=== PATIENT | female | born 1970 | race Caucasian/White ===

== ENCOUNTER 2019-12-20 12:02 | Inpatient (IN) | payer OTHER ==
[2019-12-20] MEDS ORDERED: PNEUMOC 13-VAL CONJ-DIP CRM/PF 0.5 ML DISP.SYRIN IM ONE (12:16)
[2019-12-20] MEDS ORDERED: MAGNESIUM CITRATE 300 ML BOTTLE PO PRN (12:43)
[2019-12-20] MEDS ORDERED: ACETAMINOPHEN 325 MG TABLET (FP) PO PRN (12:43)
[2019-12-20] MEDS ORDERED: MAGNESIUM HYDROX 2400MG/30ML ORAL SUSPENSION 30 ML CUP PO PRN (12:43)
[2019-12-20] MEDS ORDERED: P-EPHED 60MG/TRIPROLIDI 2.5MG TABLET PO PRN (12:43)
[2019-12-20] MEDS ORDERED: LOPERAMIDE HCL 2 MG CAPSULE PO PRN (12:43)
[2019-12-20] MEDS ORDERED: guaiFENesin 200 MG/10 ML 10 ML UNIT-DOSE CUPS PO PRN (12:43)
[2019-12-20] MEDS ORDERED: MAG HYDROX/AL HYDROX/SIMETH 30 ML UNIT-DOSE CUP PO PRN (12:43)
[2019-12-20] MEDS: MELATONIN 5 MG TABLETS PO SCH (21:04)
[2019-12-20] MEDS: THIAMINE HCL 100 MG TABLET (FP) PO SCH (21:04)
[2019-12-20] MEDS ORDERED: levETIRAcetam 500 MG TABLET (FP) PO SCH (22:00)
[2019-12-21] MEDS: NICOTINE 14 MG/24 HOURS TOPICAL PATCH TD SCH (10:02)
[2019-12-21] MEDS: PRENATAL VITAMINS W/ FOLIC ACID TABLET (FP) PO SCH (10:02)
[2019-12-21] MEDS ORDERED: PNEUMOCOCCAL 23 VACCINE 0.5 ML VIAL IM ONE (12:00)
[2019-12-21] MEDS ORDERED: FLU VACCINE (FLULAVAL) PF 60 MCG/0.5 ML SYRINGE 2020-2021 IM ONE (12:00)
[2019-12-21 20:56] LABS: PH,URINE 7.5 (5.0-8.0); URINE APPEARANCE CLEAR; URINE BILIRUBIN NEGATIVE (NEGATIVE); URINE COLOR YELLOW; URINE GLUCOSE (UA) NEGATIVE (NEGATIVE); URINE KETONE NEGATIVE (NEGATIVE); URINE LEUK ESTERASE NEGATIVE (NEGATIVE); URINE NITRITE NEGATIVE (NEGATIVE); URINE PROTEIN NEGATIVE (NEGATIVE); URINE UROBILINOGEN 0.2 mg/dL (0.2-1.0)
[2019-12-21] MEDS: THIAMINE HCL 100 MG TABLET (FP) PO SCH (21:15)
[2019-12-21] MEDS: MELATONIN 5 MG TABLETS PO SCH (21:15)
[2019-12-22] MEDS: PRENATAL VITAMINS W/ FOLIC ACID TABLET (FP) PO SCH (09:52)
[2019-12-22] MEDS: NICOTINE 14 MG/24 HOURS TOPICAL PATCH TD SCH (09:52)
[2019-12-22] MEDS: MELATONIN 5 MG TABLETS PO SCH (21:14)
[2019-12-22] MEDS: THIAMINE HCL 100 MG TABLET (FP) PO SCH (21:14)
[2019-12-23] MEDS: PRENATAL VITAMINS W/ FOLIC ACID TABLET (FP) PO SCH (09:52)
[2019-12-23] MEDS: NICOTINE 14 MG/24 HOURS TOPICAL PATCH TD SCH (09:52)
[2019-12-23] MEDS ORDERED: PT OWN MED DRAWER 7, Y5N ONE (19:14)
[2019-12-23] MEDS: MELATONIN 5 MG TABLETS PO SCH (21:43)
[2019-12-23] MEDS: NICOTINE POLACRILEX 2 MG GUM BUC PRN (21:44)
[2019-12-23] MEDS: THIAMINE HCL 100 MG TABLET (FP) PO SCH (21:44)
[2019-12-24] MEDS: PRENATAL VITAMINS W/ FOLIC ACID TABLET (FP) PO SCH (10:20)
[2019-12-24] MEDS: NICOTINE 14 MG/24 HOURS TOPICAL PATCH TD SCH (10:20)
[2019-12-24] MEDS ORDERED: MASKS NR ONE (16:35)
[2019-12-24] MEDS ORDERED: PT OWN MED DRAWER 7, Y5N ONE (20:49)
[2019-12-24] MEDS: THIAMINE HCL 100 MG TABLET (FP) PO SCH (21:04)
[2019-12-24] MEDS: MELATONIN 5 MG TABLETS PO SCH (21:04)
[2019-12-25] MEDS: PRENATAL VITAMINS W/ FOLIC ACID TABLET (FP) PO SCH (09:51)
[2019-12-25] MEDS: NICOTINE 14 MG/24 HOURS TOPICAL PATCH TD SCH (09:52)
[2019-12-25] MEDS: MELATONIN 5 MG TABLETS PO SCH (21:29)
[2019-12-25] MEDS: THIAMINE HCL 100 MG TABLET (FP) PO SCH (21:29)
[2019-12-26] MEDS: NICOTINE 14 MG/24 HOURS TOPICAL PATCH TD SCH (10:09)
[2019-12-26] MEDS: PRENATAL VITAMINS W/ FOLIC ACID TABLET (FP) PO SCH (10:23)
[2019-12-26] MEDS ORDERED: MASKS NR ONE (12:15)
[2019-12-26] MEDS: MELATONIN 5 MG TABLETS PO SCH (21:25)
[2019-12-26] MEDS: THIAMINE HCL 100 MG TABLET (FP) PO SCH (21:25)
[2019-12-27] MEDS: PRENATAL VITAMINS W/ FOLIC ACID TABLET (FP) PO SCH (09:17)
[2019-12-27] MEDS: NICOTINE 14 MG/24 HOURS TOPICAL PATCH TD SCH (09:18)
[2019-12-27] MEDS ORDERED: COLLOIDAL OATMEAL 1 BAR EACH TP PRN (14:00)
[2019-12-27] MEDS ORDERED: PT OWN MED DRAWER 7, Y5N ONE (14:49)
[2019-12-27] MEDS: THIAMINE HCL 100 MG TABLET (FP) PO SCH (21:08)
[2019-12-27] MEDS: MELATONIN 5 MG TABLETS PO SCH (21:09)
[2019-12-28] MEDS: PRENATAL VITAMINS W/ FOLIC ACID TABLET (FP) PO SCH (09:42)
[2019-12-28] MEDS: NICOTINE 14 MG/24 HOURS TOPICAL PATCH TD SCH (09:43)
[2019-12-28] MEDS: THIAMINE HCL 100 MG TABLET (FP) PO SCH (21:18)
[2019-12-28] MEDS: MELATONIN 5 MG TABLETS PO SCH (21:18)
[2019-12-29] MEDS ORDERED: PT OWN MED DRAWER 7, Y5N ONE (08:21)
[2019-12-29] MEDS: NICOTINE 14 MG/24 HOURS TOPICAL PATCH TD SCH (09:38)
[2019-12-29] MEDS: PRENATAL VITAMINS W/ FOLIC ACID TABLET (FP) PO SCH (09:39)
[2019-12-29] MEDS: MELATONIN 5 MG TABLETS PO SCH (21:40)
[2019-12-29] MEDS: THIAMINE HCL 100 MG TABLET (FP) PO SCH (21:41)
[2019-12-30] MEDS: PRENATAL VITAMINS W/ FOLIC ACID TABLET (FP) PO SCH (10:16)
[2019-12-30] MEDS: NICOTINE 14 MG/24 HOURS TOPICAL PATCH TD SCH (10:17)
[2019-12-30] MEDS: THIAMINE HCL 100 MG TABLET (FP) PO SCH (21:36)
[2019-12-30] MEDS: MELATONIN 5 MG TABLETS PO SCH (21:36)
[2019-12-31] MEDS: NICOTINE 14 MG/24 HOURS TOPICAL PATCH TD SCH (10:00)
[2019-12-31] MEDS: PRENATAL VITAMINS W/ FOLIC ACID TABLET (FP) PO SCH (10:00)
[2019-12-31] MEDS: MELATONIN 5 MG TABLETS PO SCH (21:37)
[2019-12-31] MEDS: THIAMINE HCL 100 MG TABLET (FP) PO SCH (21:37)
[2020-01-01] MEDS: PRENATAL VITAMINS W/ FOLIC ACID TABLET (FP) PO SCH (10:14)
[2020-01-01] MEDS: NICOTINE 14 MG/24 HOURS TOPICAL PATCH TD SCH (10:15)
[2020-01-01] MEDS: MELATONIN 5 MG TABLETS PO SCH (21:34)
[2020-01-01] MEDS: THIAMINE HCL 100 MG TABLET (FP) PO SCH (21:34)
[2020-01-02] MEDS ORDERED: PT OWN MED DRAWER 7, Y5N ONE (08:58)
[2020-01-02] MEDS: PRENATAL VITAMINS W/ FOLIC ACID TABLET (FP) PO SCH (10:37)
[2020-01-02] MEDS: NICOTINE 14 MG/24 HOURS TOPICAL PATCH TD SCH (10:37)
[2020-01-02] MEDS: IBUPROFEN 400 MG TABLET (FP) PO PRN ×2 (10:38→21:28)
[2020-01-02] MEDS: THIAMINE HCL 100 MG TABLET (FP) PO SCH (21:27)
[2020-01-02] MEDS: MELATONIN 5 MG TABLETS PO SCH (21:27)
[2020-01-03] MEDS ORDERED: PT OWN MED DRAWER 7, Y5N ONE ×2 (08:48→19:08)
[2020-01-03] MEDS: PRENATAL VITAMINS W/ FOLIC ACID TABLET (FP) PO SCH (10:20)
[2020-01-03] MEDS: NICOTINE 14 MG/24 HOURS TOPICAL PATCH TD SCH (10:20)
[2020-01-03] MEDS: IBUPROFEN 400 MG TABLET (FP) PO PRN ×2 (10:21→17:54)
[2020-01-03] MEDS: NICOTINE POLACRILEX 2 MG GUM BUC PRN (10:23)
[2020-01-03] MEDS ORDERED: BENZOCAINE 20 % GEL TUBE MM PRN (10:56)
[2020-01-03] MEDS: CHLORHEXIDINE GLUCONATE 0.12% 15ML CUP MM SCH ×2 (13:20→21:23)
[2020-01-03] MEDS: AMOXICILLIN 500 MG CAPSULE (FP) PO SCH ×2 (13:22→21:22)
[2020-01-03] MEDS: THIAMINE HCL 100 MG TABLET (FP) PO SCH (21:23)
[2020-01-03] MEDS: MELATONIN 5 MG TABLETS PO SCH (21:23)
[2020-01-04] MEDS: IBUPROFEN 400 MG TABLET (FP) PO PRN (06:33)
[2020-01-04] MEDS: AMOXICILLIN 500 MG CAPSULE (FP) PO SCH ×3 (06:33→21:30)
[2020-01-04] MEDS ORDERED: PT OWN MED DRAWER 7, Y5N ONE ×2 (08:56→18:20)
[2020-01-04] MEDS: PRENATAL VITAMINS W/ FOLIC ACID TABLET (FP) PO SCH (10:08)
[2020-01-04] MEDS: NICOTINE 14 MG/24 HOURS TOPICAL PATCH TD SCH (10:09)
[2020-01-04] MEDS: CHLORHEXIDINE GLUCONATE 0.12% 15ML CUP MM SCH ×2 (10:09→21:30)
[2020-01-04] MEDS: THIAMINE HCL 100 MG TABLET (FP) PO SCH (21:30)
[2020-01-04] MEDS: MELATONIN 5 MG TABLETS PO SCH (21:30)
[2020-01-05] MEDS: AMOXICILLIN 500 MG CAPSULE (FP) PO SCH ×3 (06:19→21:29)
[2020-01-05] MEDS: IBUPROFEN 400 MG TABLET (FP) PO PRN (06:19)
[2020-01-05] MEDS ORDERED: PT OWN MED DRAWER 7, Y5N ONE ×3 (08:49→19:25)
[2020-01-05] MEDS: NICOTINE 14 MG/24 HOURS TOPICAL PATCH TD SCH (10:41)
[2020-01-05] MEDS: PRENATAL VITAMINS W/ FOLIC ACID TABLET (FP) PO SCH (10:41)
[2020-01-05] MEDS: CHLORHEXIDINE GLUCONATE 0.12% 15ML CUP MM SCH ×2 (10:43→21:29)
[2020-01-05] MEDS: THIAMINE HCL 100 MG TABLET (FP) PO SCH (21:29)
[2020-01-05] MEDS: MELATONIN 5 MG TABLETS PO SCH (21:29)
[2020-01-06] MEDS: AMOXICILLIN 500 MG CAPSULE (FP) PO SCH ×3 (06:19→21:27)
[2020-01-06] MEDS: IBUPROFEN 400 MG TABLET (FP) PO PRN (06:20)
[2020-01-06] MEDS ORDERED: PT OWN MED DRAWER 7, Y5N ONE ×2 (08:40→19:11)
[2020-01-06] MEDS: NICOTINE 14 MG/24 HOURS TOPICAL PATCH TD SCH (09:59)
[2020-01-06] MEDS: PRENATAL VITAMINS W/ FOLIC ACID TABLET (FP) PO SCH (09:59)
[2020-01-06] MEDS: CHLORHEXIDINE GLUCONATE 0.12% 15ML CUP MM SCH ×2 (09:59→21:26)
[2020-01-06] MEDS: MELATONIN 5 MG TABLETS PO SCH (21:26)
[2020-01-06] MEDS: THIAMINE HCL 100 MG TABLET (FP) PO SCH (21:26)
[2020-01-07] MEDS: AMOXICILLIN 500 MG CAPSULE (FP) PO SCH ×3 (06:13→21:16)
[2020-01-07] MEDS: IBUPROFEN 400 MG TABLET (FP) PO PRN (06:13)
[2020-01-07] MEDS ORDERED: PT OWN MED DRAWER 7, Y5N ONE ×4 (08:39→19:57)
[2020-01-07] MEDS: PRENATAL VITAMINS W/ FOLIC ACID TABLET (FP) PO SCH (09:21)
[2020-01-07] MEDS: NICOTINE 14 MG/24 HOURS TOPICAL PATCH TD SCH (09:21)
[2020-01-07] MEDS: CHLORHEXIDINE GLUCONATE 0.12% 15ML CUP MM SCH ×2 (09:23→21:17)
[2020-01-07] MEDS: MELATONIN 5 MG TABLETS PO SCH (21:16)
[2020-01-07] MEDS: THIAMINE HCL 100 MG TABLET (FP) PO SCH (21:16)
[2020-01-08] MEDS: AMOXICILLIN 500 MG CAPSULE (FP) PO SCH ×3 (05:59→21:37)
[2020-01-08] MEDS ORDERED: PT OWN MED DRAWER 7, Y5N ONE ×2 (09:06→20:26)
[2020-01-08] MEDS: PRENATAL VITAMINS W/ FOLIC ACID TABLET (FP) PO SCH (11:34)
[2020-01-08] MEDS: NICOTINE 14 MG/24 HOURS TOPICAL PATCH TD SCH (11:34)
[2020-01-08] MEDS: CHLORHEXIDINE GLUCONATE 0.12% 15ML CUP MM SCH ×2 (11:35→21:38)
[2020-01-08] MEDS: THIAMINE HCL 100 MG TABLET (FP) PO SCH (21:38)
[2020-01-08] MEDS: MELATONIN 5 MG TABLETS PO SCH (21:38)
[2020-01-09] MEDS: AMOXICILLIN 500 MG CAPSULE (FP) PO SCH ×3 (06:23→21:16)
[2020-01-09] MEDS ORDERED: PT OWN MED DRAWER 7, Y5N ONE ×2 (08:56→18:35)
[2020-01-09] MEDS: PRENATAL VITAMINS W/ FOLIC ACID TABLET (FP) PO SCH (09:44)
[2020-01-09] MEDS: CHLORHEXIDINE GLUCONATE 0.12% 15ML CUP MM SCH ×2 (09:45→21:16)
[2020-01-09] MEDS: NICOTINE 14 MG/24 HOURS TOPICAL PATCH TD SCH (09:45)
[2020-01-09] MEDS: MELATONIN 5 MG TABLETS PO SCH (21:16)
[2020-01-09] MEDS: THIAMINE HCL 100 MG TABLET (FP) PO SCH (21:16)
[2020-01-10] MEDS: PRENATAL VITAMINS W/ FOLIC ACID TABLET (FP) PO SCH (09:59)
[2020-01-10] MEDS: CHLORHEXIDINE GLUCONATE 0.12% 15ML CUP MM SCH ×2 (10:00→21:20)
[2020-01-10] MEDS: NICOTINE 14 MG/24 HOURS TOPICAL PATCH TD SCH (10:00)
[2020-01-10] MEDS: THIAMINE HCL 100 MG TABLET (FP) PO SCH (21:19)
[2020-01-10] MEDS: MELATONIN 5 MG TABLETS PO SCH (21:19)
[2020-01-11] MEDS: PRENATAL VITAMINS W/ FOLIC ACID TABLET (FP) PO SCH (09:44)
[2020-01-11] MEDS: CHLORHEXIDINE GLUCONATE 0.12% 15ML CUP MM SCH ×2 (09:45→21:20)
[2020-01-11] MEDS: NICOTINE 14 MG/24 HOURS TOPICAL PATCH TD SCH (09:45)
[2020-01-11] MEDS ORDERED: PT OWN MED DRAWER 7, Y5N ONE (18:53)
[2020-01-11] MEDS: MELATONIN 5 MG TABLETS PO SCH (21:20)
[2020-01-11] MEDS: THIAMINE HCL 100 MG TABLET (FP) PO SCH (21:20)
[2020-01-12] MEDS ORDERED: PT OWN MED DRAWER 7, Y5N ONE (08:47)
[2020-01-12] MEDS: NICOTINE 14 MG/24 HOURS TOPICAL PATCH TD SCH (10:04)
[2020-01-12] MEDS: CHLORHEXIDINE GLUCONATE 0.12% 15ML CUP MM SCH ×2 (10:04→21:19)
[2020-01-12] MEDS: PRENATAL VITAMINS W/ FOLIC ACID TABLET (FP) PO SCH (10:04)
[2020-01-12] MEDS: MELATONIN 5 MG TABLETS PO SCH (21:19)
[2020-01-12] MEDS: THIAMINE HCL 100 MG TABLET (FP) PO SCH (21:19)
[2020-01-13] MEDS ORDERED: PT OWN MED DRAWER 7, Y5N ONE ×2 (08:56→20:54)
[2020-01-13] MEDS: PRENATAL VITAMINS W/ FOLIC ACID TABLET (FP) PO SCH (10:31)
[2020-01-13] MEDS: CHLORHEXIDINE GLUCONATE 0.12% 15ML CUP MM SCH ×2 (10:31→22:07)
[2020-01-13] MEDS: NICOTINE 14 MG/24 HOURS TOPICAL PATCH TD SCH (10:31)
[2020-01-13] MEDS: NICOTINE POLACRILEX 2 MG GUM BUC PRN (10:33)
[2020-01-13] MEDS: MELATONIN 5 MG TABLETS PO SCH (22:06)
[2020-01-13] MEDS: THIAMINE HCL 100 MG TABLET (FP) PO SCH (22:07)
[2020-01-14] MEDS: NICOTINE 14 MG/24 HOURS TOPICAL PATCH TD SCH (09:59)
[2020-01-14] MEDS: CHLORHEXIDINE GLUCONATE 0.12% 15ML CUP MM SCH ×2 (09:59→21:47)
[2020-01-14] MEDS: PRENATAL VITAMINS W/ FOLIC ACID TABLET (FP) PO SCH (09:59)
[2020-01-14] MEDS ORDERED: PT OWN MED DRAWER 7, Y5N ONE (20:39)
[2020-01-14] MEDS: MELATONIN 5 MG TABLETS PO SCH (21:47)
[2020-01-14] MEDS: THIAMINE HCL 100 MG TABLET (FP) PO SCH (21:47)
[2020-01-15] MEDS ORDERED: PT OWN MED DRAWER 7, Y5N ONE (08:49)
[2020-01-15] MEDS: NICOTINE 14 MG/24 HOURS TOPICAL PATCH TD SCH (10:18)
[2020-01-15] MEDS: PRENATAL VITAMINS W/ FOLIC ACID TABLET (FP) PO SCH (10:18)
[2020-01-15] MEDS: CHLORHEXIDINE GLUCONATE 0.12% 15ML CUP MM SCH ×2 (10:18→21:25)
[2020-01-15] MEDS: MELATONIN 5 MG TABLETS PO SCH (21:25)
[2020-01-15] MEDS: THIAMINE HCL 100 MG TABLET (FP) PO SCH (21:25)
[2020-01-16] MEDS: NICOTINE 14 MG/24 HOURS TOPICAL PATCH TD SCH (10:07)
[2020-01-16] MEDS: CHLORHEXIDINE GLUCONATE 0.12% 15ML CUP MM SCH ×2 (10:07→21:13)
[2020-01-16] MEDS: PRENATAL VITAMINS W/ FOLIC ACID TABLET (FP) PO SCH (10:07)
[2020-01-16] MEDS: MELATONIN 5 MG TABLETS PO SCH (21:13)
[2020-01-16] MEDS: THIAMINE HCL 100 MG TABLET (FP) PO SCH (21:13)
[2020-01-17 06:46] VITALS: BP 134/74; PULSE 72; TEMP 97.5
[2020-01-17] MEDS: NICOTINE 14 MG/24 HOURS TOPICAL PATCH TD SCH (09:41)
[2020-01-17] MEDS: PRENATAL VITAMINS W/ FOLIC ACID TABLET (FP) PO SCH (09:41)
[2020-01-17] MEDS: CHLORHEXIDINE GLUCONATE 0.12% 15ML CUP MM SCH (09:44)
== END 2020-01-17 11:04 | disposition home or self-care (01) | DRG 772 ==
LOC: YASAS 12:02 → Y3E 12:03 → Y3W 12-29 15:07
PROVIDERS: ADMIT Allergy & Immunology; ATTEND Allergy & Immunology
PROC: HZ42ZZZ Group Counseling for Substance Abuse Treatment, Cognitive-Behavioral (ICD-10-PCS; principal; 2019-12-20)
DX: F10.20 Alcohol dependence, uncomplicated (principal); F13.20 Sedative, hypnotic or anxiolytic dependence, uncomplicated; F11.20 Opioid dependence, uncomplicated; F14.20 Cocaine dependence, uncomplicated; F12.20 Cannabis dependence, uncomplicated; F17.210 Nicotine dependence, cigarettes, uncomplicated; K02.9 Dental caries, unspecified; Z86.69 Personal history of other diseases of the nervous system and sense organs; Z91.013 Allergy to seafood; Z56.0 Unemployment, unspecified; Z59.0 Homelessness
CPT/HCPCS: 36415; 80177; 81003; 90732; G0008; G0009; Q2036

== ENCOUNTER 2022-03-18 14:50 | Inpatient (IN) | payer OTHER ==
[2022-03-18 20:40] VITALS: BMI 26.2
[2022-03-18] MEDS ORDERED: guaiFENesin 200 MG/10 ML 10 ML UNIT-DOSE CUPS PO PRN (21:01)
[2022-03-18] MEDS ORDERED: LOPERAMIDE HCL 2 MG CAPSULE PO PRN (21:01)
[2022-03-18] MEDS ORDERED: P-EPHED 60MG/TRIPROLIDI 2.5MG TABLET PO PRN (21:01)
[2022-03-18] MEDS ORDERED: MAG HYDROX/AL HYDROX/SIMETH 30 ML UNIT-DOSE CUP PO PRN (21:01)
[2022-03-18] MEDS ORDERED: POLYETHYLENE GLYCOL (HEALTHYLAX) 3350 17 GM PACKET PO PRN (21:01)
[2022-03-18] MEDS ORDERED: NICOTINE POLACRILEX 2 MG GUM BC PRN (21:01)
[2022-03-18] MEDS ORDERED: IBUPROFEN 400 MG TABLET (FP) PO PRN (21:01)
[2022-03-18] MEDS ORDERED: MAGNESIUM HYDROX 2400MG/30ML ORAL SUSPENSION 30 ML CUP PO PRN (21:01)
[2022-03-19] MEDS: BICTEGRAV/EMTRICIT/TENOFOV (BIKTARVY) 50-200-25 MG TABLET PO SCH (11:47)
[2022-03-19] MEDS: levETIRAcetam 250 MG TABLET PO SCH ×2 (11:47→21:13)
[2022-03-19] MEDS: PRENATAL VITAMINS W/ FOLIC ACID TABLET (FP) PO SCH (11:48)
[2022-03-19] MEDS: NICOTINE 14 MG/24 HOURS TOPICAL PATCH TD SCH (11:49)
[2022-03-19] MEDS ORDERED: NICOTINE 14 MG/24 HOURS TOPICAL PATCH TD ONE (11:52)
[2022-03-19] MEDS ORDERED: PRENATAL VITAMINS W/ FOLIC ACID TABLET (FP) PO ONE (11:56)
[2022-03-19 12:23] LABS: HEMATOCRIT 34.2 % (32.4-45.2); HEMOGLOBIN 11.6 GM/dL (10.7-15.3); MCH 34.5 pg (25.7-33.7); MCHC 34.1 g/dl (32.0-36.0); MEAN CELL VOLUME 101.3 fl (80-96); PLATELET COUNT 175 10^3/uL (134-434); RBC 3.38 M/mm3 (3.60-5.2); RDW 12.4 % (11.6-15.6); WHITE BLOOD COUNT 6.3 K/mm3 (4.0-10.0)
[2022-03-19 12:42] LABS: ALBUMIN 3.3 g/dl (3.4-5.0); BLOOD UREA NITROGEN 14.7 mg/dL (7-18); CALCIUM 8.9 mg/dL (8.5-10.1)
[2022-03-19 12:45] LABS: CREATININE 0.7 mg/dL (0.55-1.3)
[2022-03-19 12:47] LABS: BILIRUBIN,TOTAL 0.2 mg/dL (0.2-1); TOT PROT 6.5 g/dl (6.4-8.2)
[2022-03-19] MEDS ORDERED: TUBERCULIN PPD 5 TU/0.1ML VIAL ID ONE (14:50)
[2022-03-19] MEDS: THIAMINE HCL 100 MG TABLET (FP) PO SCH ×2 (14:58→21:14)
[2022-03-19] MEDS: MELATONIN 5 MG TABLETS PO SCH ×2 (14:58→21:13)
[2022-03-19] MEDS: QUEtiapine FUMARATE 25 MG TABLET PO SCH (21:13)
[2022-03-19 21:36] LABS: EPI CELLS >36 /uL (0-25.1); HYALINE CASTS 5 /uL (0-3.1); PH,URINE 5.5 (5.0-8.0); URINE APPEARANCE TURBID; URINE BACTERIA 224 /uL (0-1359); URINE BILIRUBIN NEGATIVE (NEGATIVE); URINE COLOR DK YELLOW; URINE GLUCOSE (UA) NEGATIVE (NEGATIVE); URINE KETONE TRACE (NEGATIVE); URINE LEUK ESTERASE 1+ (NEGATIVE); URINE NITRITE NEGATIVE (NEGATIVE); URINE PROTEIN TRACE (NEGATIVE); URINE RBC 15 /uL (0-23.9); URINE WBC 45 /uL (0-25.8)
[2022-03-20] MEDS: BICTEGRAV/EMTRICIT/TENOFOV (BIKTARVY) 50-200-25 MG TABLET PO SCH (07:53)
[2022-03-20] MEDS: levETIRAcetam 250 MG TABLET PO SCH ×3 (07:54→17:44)
[2022-03-20] MEDS: PRENATAL VITAMINS W/ FOLIC ACID TABLET (FP) PO SCH (10:52)
[2022-03-20] MEDS: NICOTINE 14 MG/24 HOURS TOPICAL PATCH TD SCH (10:53)
[2022-03-20 20:58] LABS: SYPHILIS W/ RPR CONF NON-REACTIVE (NONREACTIVE)
[2022-03-20] MEDS: MELATONIN 5 MG TABLETS PO SCH (21:38)
[2022-03-20] MEDS: THIAMINE HCL 100 MG TABLET (FP) PO SCH (21:38)
[2022-03-20] MEDS: QUEtiapine FUMARATE 25 MG TABLET PO SCH (21:38)
[2022-03-21] MEDS: BICTEGRAV/EMTRICIT/TENOFOV (BIKTARVY) 50-200-25 MG TABLET PO SCH (07:02)
[2022-03-21] MEDS: levETIRAcetam 250 MG TABLET PO SCH ×2 (07:03→17:28)
[2022-03-21] MEDS: NICOTINE 14 MG/24 HOURS TOPICAL PATCH TD SCH (10:15)
[2022-03-21] MEDS: PRENATAL VITAMINS W/ FOLIC ACID TABLET (FP) PO SCH (10:16)
[2022-03-21] MEDS: THIAMINE HCL 100 MG TABLET (FP) PO SCH (21:48)
[2022-03-21] MEDS: QUEtiapine FUMARATE 25 MG TABLET PO SCH (21:48)
[2022-03-21] MEDS: MELATONIN 5 MG TABLETS PO SCH (21:48)
[2022-03-22] MEDS: levETIRAcetam 250 MG TABLET PO SCH ×2 (07:17→17:30)
[2022-03-22] MEDS: BICTEGRAV/EMTRICIT/TENOFOV (BIKTARVY) 50-200-25 MG TABLET PO SCH (07:17)
[2022-03-22] MEDS: PRENATAL VITAMINS W/ FOLIC ACID TABLET (FP) PO SCH (10:24)
[2022-03-22] MEDS: NICOTINE 14 MG/24 HOURS TOPICAL PATCH TD SCH (10:25)
[2022-03-22] MEDS: MELATONIN 5 MG TABLETS PO SCH (21:54)
[2022-03-22] MEDS: QUEtiapine FUMARATE 25 MG TABLET PO SCH (21:54)
[2022-03-22] MEDS: THIAMINE HCL 100 MG TABLET (FP) PO SCH (21:55)
[2022-03-23] MEDS: BICTEGRAV/EMTRICIT/TENOFOV (BIKTARVY) 50-200-25 MG TABLET PO SCH (06:50)
[2022-03-23] MEDS: levETIRAcetam 250 MG TABLET PO SCH ×2 (06:54→18:12)
[2022-03-23] MEDS: NICOTINE 14 MG/24 HOURS TOPICAL PATCH TD SCH (10:03)
[2022-03-23] MEDS: PRENATAL VITAMINS W/ FOLIC ACID TABLET (FP) PO SCH (10:03)
[2022-03-23] MEDS: QUEtiapine FUMARATE 25 MG TABLET PO SCH (22:02)
[2022-03-23] MEDS: THIAMINE HCL 100 MG TABLET (FP) PO SCH (22:02)
[2022-03-23] MEDS: MELATONIN 5 MG TABLETS PO SCH (22:02)
[2022-03-24] MEDS: BICTEGRAV/EMTRICIT/TENOFOV (BIKTARVY) 50-200-25 MG TABLET PO SCH (06:33)
[2022-03-24] MEDS: levETIRAcetam 250 MG TABLET PO SCH ×2 (06:33→17:15)
[2022-03-24] MEDS: ACETAMINOPHEN 325 MG TABLET (FP) PO PRN (08:31)
[2022-03-24] MEDS: PRENATAL VITAMINS W/ FOLIC ACID TABLET (FP) PO SCH (09:40)
[2022-03-24] MEDS: NICOTINE 14 MG/24 HOURS TOPICAL PATCH TD SCH (09:40)
[2022-03-24] MEDS: MELATONIN 5 MG TABLETS PO SCH (21:24)
[2022-03-24] MEDS: QUEtiapine FUMARATE 25 MG TABLET PO SCH (21:24)
[2022-03-24] MEDS: THIAMINE HCL 100 MG TABLET (FP) PO SCH (21:24)
[2022-03-25] MEDS: BICTEGRAV/EMTRICIT/TENOFOV (BIKTARVY) 50-200-25 MG TABLET PO SCH (06:32)
[2022-03-25] MEDS: levETIRAcetam 250 MG TABLET PO SCH ×2 (06:32→17:52)
[2022-03-25] MEDS: PRENATAL VITAMINS W/ FOLIC ACID TABLET (FP) PO SCH (10:03)
[2022-03-25] MEDS: NICOTINE 14 MG/24 HOURS TOPICAL PATCH TD SCH (10:03)
[2022-03-25] MEDS: MELATONIN 5 MG TABLETS PO SCH (21:43)
[2022-03-25] MEDS: QUEtiapine FUMARATE 25 MG TABLET PO SCH (21:43)
[2022-03-25] MEDS: THIAMINE HCL 100 MG TABLET (FP) PO SCH (21:43)
[2022-03-26] MEDS: levETIRAcetam 250 MG TABLET PO SCH ×2 (06:41→17:28)
[2022-03-26] MEDS: BICTEGRAV/EMTRICIT/TENOFOV (BIKTARVY) 50-200-25 MG TABLET PO SCH (06:41)
[2022-03-26] MEDS: PRENATAL VITAMINS W/ FOLIC ACID TABLET (FP) PO SCH (10:11)
[2022-03-26] MEDS: NICOTINE 14 MG/24 HOURS TOPICAL PATCH TD SCH (10:11)
[2022-03-26] MEDS: MELATONIN 5 MG TABLETS PO SCH (21:37)
[2022-03-26] MEDS: QUEtiapine FUMARATE 25 MG TABLET PO SCH (21:38)
[2022-03-26] MEDS: THIAMINE HCL 100 MG TABLET (FP) PO SCH (21:38)
[2022-03-27] MEDS: BICTEGRAV/EMTRICIT/TENOFOV (BIKTARVY) 50-200-25 MG TABLET PO SCH (06:30)
[2022-03-27] MEDS: levETIRAcetam 250 MG TABLET PO SCH ×2 (06:31→17:46)
[2022-03-27] MEDS: PRENATAL VITAMINS W/ FOLIC ACID TABLET (FP) PO SCH (10:11)
[2022-03-27] MEDS: NICOTINE 14 MG/24 HOURS TOPICAL PATCH TD SCH (10:11)
[2022-03-27] MEDS: FLUOCINONIDE 0.05% TOP OINT (60 GM TUBE) TP SCH ×2 (12:17→21:48)
[2022-03-27] MEDS: THIAMINE HCL 100 MG TABLET (FP) PO SCH (21:47)
[2022-03-27] MEDS: QUEtiapine FUMARATE 25 MG TABLET PO SCH (21:47)
[2022-03-27] MEDS: MELATONIN 5 MG TABLETS PO SCH (21:47)
[2022-03-28] MEDS: levETIRAcetam 250 MG TABLET PO SCH ×2 (06:34→17:37)
[2022-03-28] MEDS: BICTEGRAV/EMTRICIT/TENOFOV (BIKTARVY) 50-200-25 MG TABLET PO SCH (06:34)
[2022-03-28] MEDS: PRENATAL VITAMINS W/ FOLIC ACID TABLET (FP) PO SCH (10:09)
[2022-03-28] MEDS: FLUOCINONIDE 0.05% TOP OINT (60 GM TUBE) TP SCH ×2 (10:10→22:08)
[2022-03-28] MEDS: NICOTINE 14 MG/24 HOURS TOPICAL PATCH TD SCH (10:13)
[2022-03-28] MEDS: COLLOIDAL OATMEAL 1 BAR EACH TP PRN (18:01)
[2022-03-28] MEDS: MELATONIN 5 MG TABLETS PO SCH (22:07)
[2022-03-28] MEDS: THIAMINE HCL 100 MG TABLET (FP) PO SCH (22:07)
[2022-03-28] MEDS: QUEtiapine FUMARATE 25 MG TABLET PO SCH (22:07)
[2022-03-29] MEDS: levETIRAcetam 250 MG TABLET PO SCH ×2 (06:45→17:35)
[2022-03-29] MEDS: BICTEGRAV/EMTRICIT/TENOFOV (BIKTARVY) 50-200-25 MG TABLET PO SCH (06:45)
[2022-03-29] MEDS: NICOTINE 14 MG/24 HOURS TOPICAL PATCH TD SCH (10:30)
[2022-03-29] MEDS: FLUOCINONIDE 0.05% TOP OINT (60 GM TUBE) TP SCH ×2 (10:30→21:51)
[2022-03-29] MEDS: PRENATAL VITAMINS W/ FOLIC ACID TABLET (FP) PO SCH (10:30)
[2022-03-29] MEDS: MELATONIN 5 MG TABLETS PO SCH (21:50)
[2022-03-29] MEDS: QUEtiapine FUMARATE 25 MG TABLET PO SCH (21:51)
[2022-03-29] MEDS: THIAMINE HCL 100 MG TABLET (FP) PO SCH (21:51)
[2022-03-30] MEDS: levETIRAcetam 250 MG TABLET PO SCH ×2 (06:38→17:28)
[2022-03-30] MEDS: BICTEGRAV/EMTRICIT/TENOFOV (BIKTARVY) 50-200-25 MG TABLET PO SCH (06:38)
[2022-03-30] MEDS: FLUOCINONIDE 0.05% TOP OINT (60 GM TUBE) TP SCH ×2 (09:50→21:10)
[2022-03-30] MEDS: PRENATAL VITAMINS W/ FOLIC ACID TABLET (FP) PO SCH (09:50)
[2022-03-30] MEDS: NICOTINE 14 MG/24 HOURS TOPICAL PATCH TD SCH (09:50)
[2022-03-30] MEDS: DOCUSATE SODIUM 100 MG CAPSULE (FP) PO SCH ×2 (13:10→21:09)
[2022-03-30] MEDS: ACETAMINOPHEN 325 MG TABLET (FP) PO PRN (17:44)
[2022-03-30] MEDS: THIAMINE HCL 100 MG TABLET (FP) PO SCH (21:09)
[2022-03-30] MEDS: QUEtiapine FUMARATE 25 MG TABLET PO SCH (21:09)
[2022-03-30] MEDS: MELATONIN 5 MG TABLETS PO SCH (21:10)
[2022-03-31] MEDS: levETIRAcetam 250 MG TABLET PO SCH ×2 (06:26→17:09)
[2022-03-31] MEDS: DOCUSATE SODIUM 100 MG CAPSULE (FP) PO SCH ×3 (06:26→21:14)
[2022-03-31] MEDS: BICTEGRAV/EMTRICIT/TENOFOV (BIKTARVY) 50-200-25 MG TABLET PO SCH (06:27)
[2022-03-31] MEDS: NICOTINE 14 MG/24 HOURS TOPICAL PATCH TD SCH (09:51)
[2022-03-31] MEDS: FLUOCINONIDE 0.05% TOP OINT (60 GM TUBE) TP SCH ×2 (09:51→21:13)
[2022-03-31] MEDS: PRENATAL VITAMINS W/ FOLIC ACID TABLET (FP) PO SCH (09:52)
[2022-03-31 20:55] LABS: EPI CELLS 19 /uL (0-25.1); HYALINE CASTS 0 /uL (0-3.1); PH,URINE 7.5 (5.0-8.0); URINE APPEARANCE TURBID; URINE BACTERIA 337 /uL (0-1359); URINE BILIRUBIN NEGATIVE (NEGATIVE); URINE COLOR YELLOW; URINE GLUCOSE (UA) NEGATIVE (NEGATIVE); URINE KETONE NEGATIVE (NEGATIVE); URINE LEUK ESTERASE 1+ (NEGATIVE); URINE NITRITE NEGATIVE (NEGATIVE); URINE PROTEIN NEGATIVE (NEGATIVE); URINE RBC 34 /uL (0-23.9); URINE WBC 29 /uL (0-25.8)
[2022-03-31] MEDS: THIAMINE HCL 100 MG TABLET (FP) PO SCH (21:14)
[2022-03-31] MEDS: QUEtiapine FUMARATE 25 MG TABLET PO SCH (21:14)
[2022-03-31] MEDS: MELATONIN 5 MG TABLETS PO SCH (21:14)
[2022-04-01] MEDS: levETIRAcetam 250 MG TABLET PO SCH ×2 (06:28→17:20)
[2022-04-01] MEDS: BICTEGRAV/EMTRICIT/TENOFOV (BIKTARVY) 50-200-25 MG TABLET PO SCH (06:28)
[2022-04-01] MEDS: DOCUSATE SODIUM 100 MG CAPSULE (FP) PO SCH ×3 (06:28→21:40)
[2022-04-01] MEDS: PRENATAL VITAMINS W/ FOLIC ACID TABLET (FP) PO SCH (09:46)
[2022-04-01] MEDS: NICOTINE 14 MG/24 HOURS TOPICAL PATCH TD SCH (09:46)
[2022-04-01] MEDS: FLUOCINONIDE 0.05% TOP OINT (60 GM TUBE) TP SCH ×2 (09:48→21:41)
[2022-04-01] MEDS: THIAMINE HCL 100 MG TABLET (FP) PO SCH (21:40)
[2022-04-01] MEDS: MELATONIN 5 MG TABLETS PO SCH (21:40)
[2022-04-01] MEDS: QUEtiapine FUMARATE 25 MG TABLET PO SCH (21:40)
[2022-04-02] MEDS: BICTEGRAV/EMTRICIT/TENOFOV (BIKTARVY) 50-200-25 MG TABLET PO SCH (06:40)
[2022-04-02] MEDS: levETIRAcetam 250 MG TABLET PO SCH ×2 (06:40→17:31)
[2022-04-02] MEDS: DOCUSATE SODIUM 100 MG CAPSULE (FP) PO SCH ×3 (06:40→21:29)
[2022-04-02] MEDS: PRENATAL VITAMINS W/ FOLIC ACID TABLET (FP) PO SCH (09:58)
[2022-04-02] MEDS: NICOTINE 14 MG/24 HOURS TOPICAL PATCH TD SCH (09:59)
[2022-04-02] MEDS: FLUOCINONIDE 0.05% TOP OINT (60 GM TUBE) TP SCH ×2 (09:59→21:30)
[2022-04-02] MEDS: ACETAMINOPHEN 325 MG TABLET (FP) PO PRN (14:09)
[2022-04-02] MEDS: MELATONIN 5 MG TABLETS PO SCH (21:29)
[2022-04-02] MEDS: QUEtiapine FUMARATE 25 MG TABLET PO SCH (21:29)
[2022-04-02] MEDS: THIAMINE HCL 100 MG TABLET (FP) PO SCH (21:29)
[2022-04-03] MEDS: BICTEGRAV/EMTRICIT/TENOFOV (BIKTARVY) 50-200-25 MG TABLET PO SCH (06:35)
[2022-04-03] MEDS: levETIRAcetam 250 MG TABLET PO SCH ×2 (06:35→17:09)
[2022-04-03] MEDS: DOCUSATE SODIUM 100 MG CAPSULE (FP) PO SCH ×3 (06:35→21:31)
[2022-04-03] MEDS: PRENATAL VITAMINS W/ FOLIC ACID TABLET (FP) PO SCH (09:52)
[2022-04-03] MEDS: NICOTINE 14 MG/24 HOURS TOPICAL PATCH TD SCH (09:52)
[2022-04-03] MEDS: FLUOCINONIDE 0.05% TOP OINT (60 GM TUBE) TP SCH ×2 (09:52→21:32)
[2022-04-03] MEDS: QUEtiapine FUMARATE 25 MG TABLET PO SCH (21:31)
[2022-04-03] MEDS: MELATONIN 5 MG TABLETS PO SCH (21:31)
[2022-04-03] MEDS: THIAMINE HCL 100 MG TABLET (FP) PO SCH (21:31)
[2022-04-04] MEDS: BICTEGRAV/EMTRICIT/TENOFOV (BIKTARVY) 50-200-25 MG TABLET PO SCH (06:45)
[2022-04-04] MEDS: levETIRAcetam 250 MG TABLET PO SCH ×2 (06:45→17:00)
[2022-04-04] MEDS: DOCUSATE SODIUM 100 MG CAPSULE (FP) PO SCH ×3 (06:46→21:54)
[2022-04-04] MEDS: NICOTINE 14 MG/24 HOURS TOPICAL PATCH TD SCH (10:20)
[2022-04-04] MEDS: PRENATAL VITAMINS W/ FOLIC ACID TABLET (FP) PO SCH (10:20)
[2022-04-04] MEDS: FLUOCINONIDE 0.05% TOP OINT (60 GM TUBE) TP SCH ×2 (10:21→21:55)
[2022-04-04] MEDS: QUEtiapine FUMARATE 25 MG TABLET PO SCH (21:54)
[2022-04-04] MEDS: THIAMINE HCL 100 MG TABLET (FP) PO SCH (21:54)
[2022-04-04] MEDS: MELATONIN 5 MG TABLETS PO SCH (21:54)
[2022-04-05] MEDS: BICTEGRAV/EMTRICIT/TENOFOV (BIKTARVY) 50-200-25 MG TABLET PO SCH (06:54)
[2022-04-05] MEDS: levETIRAcetam 250 MG TABLET PO SCH ×2 (06:54→17:52)
[2022-04-05] MEDS: DOCUSATE SODIUM 100 MG CAPSULE (FP) PO SCH ×3 (06:54→21:39)
[2022-04-05] MEDS: COLLOIDAL OATMEAL 1 BAR EACH TP PRN (07:34)
[2022-04-05] MEDS: NICOTINE 14 MG/24 HOURS TOPICAL PATCH TD SCH (10:15)
[2022-04-05] MEDS: FLUOCINONIDE 0.05% TOP OINT (60 GM TUBE) TP SCH ×2 (10:15→21:40)
[2022-04-05] MEDS: PRENATAL VITAMINS W/ FOLIC ACID TABLET (FP) PO SCH (10:15)
[2022-04-05] MEDS: QUEtiapine FUMARATE 25 MG TABLET PO SCH (21:39)
[2022-04-05] MEDS: MELATONIN 5 MG TABLETS PO SCH (21:39)
[2022-04-05] MEDS: THIAMINE HCL 100 MG TABLET (FP) PO SCH (21:39)
[2022-04-06] MEDS: BICTEGRAV/EMTRICIT/TENOFOV (BIKTARVY) 50-200-25 MG TABLET PO SCH (06:47)
[2022-04-06] MEDS: levETIRAcetam 250 MG TABLET PO SCH ×2 (06:47→17:20)
[2022-04-06] MEDS: DOCUSATE SODIUM 100 MG CAPSULE (FP) PO SCH ×3 (06:47→21:43)
[2022-04-06] MEDS: NICOTINE 14 MG/24 HOURS TOPICAL PATCH TD SCH (10:18)
[2022-04-06] MEDS: PRENATAL VITAMINS W/ FOLIC ACID TABLET (FP) PO SCH (10:19)
[2022-04-06] MEDS: FLUOCINONIDE 0.05% TOP OINT (60 GM TUBE) TP SCH ×2 (10:19→22:15)
[2022-04-06] MEDS: ACETAMINOPHEN 325 MG TABLET (FP) PO PRN (18:26)
[2022-04-06] MEDS: THIAMINE HCL 100 MG TABLET (FP) PO SCH (21:43)
[2022-04-06] MEDS: QUEtiapine FUMARATE 25 MG TABLET PO SCH (21:43)
[2022-04-06] MEDS: PRAZOSIN HCL 1 MG CAPSULE PO SCH (21:43)
[2022-04-06] MEDS ORDERED: SUVOREXANT 5 MG TABLET PO PRN (22:00)
[2022-04-07] MEDS: BICTEGRAV/EMTRICIT/TENOFOV (BIKTARVY) 50-200-25 MG TABLET PO SCH (06:43)
[2022-04-07] MEDS: DOCUSATE SODIUM 100 MG CAPSULE (FP) PO SCH ×3 (06:43→21:36)
[2022-04-07] MEDS: levETIRAcetam 250 MG TABLET PO SCH ×2 (06:43→17:10)
[2022-04-07] MEDS: PRENATAL VITAMINS W/ FOLIC ACID TABLET (FP) PO SCH (09:54)
[2022-04-07] MEDS: NICOTINE 14 MG/24 HOURS TOPICAL PATCH TD SCH (09:55)
[2022-04-07] MEDS: FLUOCINONIDE 0.05% TOP OINT (60 GM TUBE) TP SCH ×2 (09:57→21:37)
[2022-04-07] MEDS: QUEtiapine FUMARATE 25 MG TABLET PO SCH (21:36)
[2022-04-07] MEDS: THIAMINE HCL 100 MG TABLET (FP) PO SCH (21:36)
[2022-04-07] MEDS: PRAZOSIN HCL 1 MG CAPSULE PO SCH (21:36)
[2022-04-07 22:12] VITALS: RESP 18
[2022-04-08] MEDS: levETIRAcetam 250 MG TABLET PO SCH ×2 (06:50→18:10)
[2022-04-08] MEDS: DOCUSATE SODIUM 100 MG CAPSULE (FP) PO SCH ×3 (06:51→21:16)
[2022-04-08] MEDS: BICTEGRAV/EMTRICIT/TENOFOV (BIKTARVY) 50-200-25 MG TABLET PO SCH (06:51)
[2022-04-08] MEDS: NICOTINE 14 MG/24 HOURS TOPICAL PATCH TD SCH (10:10)
[2022-04-08] MEDS: PRENATAL VITAMINS W/ FOLIC ACID TABLET (FP) PO SCH (10:10)
[2022-04-08] MEDS: FLUOCINONIDE 0.05% TOP OINT (60 GM TUBE) TP SCH ×2 (10:11→21:17)
[2022-04-08] MEDS: QUEtiapine FUMARATE 25 MG TABLET PO SCH (21:16)
[2022-04-08] MEDS: THIAMINE HCL 100 MG TABLET (FP) PO SCH (21:17)
[2022-04-08] MEDS: PRAZOSIN HCL 1 MG CAPSULE PO SCH (21:17)
[2022-04-09] MEDS: DOCUSATE SODIUM 100 MG CAPSULE (FP) PO SCH ×3 (06:38→21:32)
[2022-04-09] MEDS: BENZOCAINE/MENTHOL (CHLORASEPTIC ) LOZENGE MM PRN (06:38)
[2022-04-09] MEDS: BICTEGRAV/EMTRICIT/TENOFOV (BIKTARVY) 50-200-25 MG TABLET PO SCH (06:38)
[2022-04-09] MEDS: levETIRAcetam 250 MG TABLET PO SCH ×2 (06:38→17:19)
[2022-04-09] MEDS: NICOTINE 14 MG/24 HOURS TOPICAL PATCH TD SCH (10:58)
[2022-04-09] MEDS: PRENATAL VITAMINS W/ FOLIC ACID TABLET (FP) PO SCH (10:59)
[2022-04-09] MEDS: FLUOCINONIDE 0.05% TOP OINT (60 GM TUBE) TP SCH ×2 (11:00→21:33)
[2022-04-09] MEDS: PRAZOSIN HCL 1 MG CAPSULE PO SCH (21:32)
[2022-04-09] MEDS: THIAMINE HCL 100 MG TABLET (FP) PO SCH (21:32)
[2022-04-09] MEDS: QUEtiapine FUMARATE 25 MG TABLET PO SCH (21:32)
[2022-04-09] MEDS ORDERED: SUVOREXANT 5 MG TABLET PO PRN (22:00)
[2022-04-10] MEDS: levETIRAcetam 250 MG TABLET PO SCH ×2 (06:46→17:20)
[2022-04-10] MEDS: BICTEGRAV/EMTRICIT/TENOFOV (BIKTARVY) 50-200-25 MG TABLET PO SCH (06:46)
[2022-04-10] MEDS: DOCUSATE SODIUM 100 MG CAPSULE (FP) PO SCH ×3 (06:47→21:15)
[2022-04-10] MEDS: BENZOCAINE/MENTHOL (CHLORASEPTIC ) LOZENGE MM PRN (06:47)
[2022-04-10] MEDS: PRENATAL VITAMINS W/ FOLIC ACID TABLET (FP) PO SCH (10:19)
[2022-04-10] MEDS: LORATADINE 10 MG TABLET PO SCH (10:19)
[2022-04-10] MEDS: FLUOCINONIDE 0.05% TOP OINT (60 GM TUBE) TP SCH ×2 (10:19→21:15)
[2022-04-10] MEDS: NICOTINE 14 MG/24 HOURS TOPICAL PATCH TD SCH (10:20)
[2022-04-10] MEDS: PRAZOSIN HCL 1 MG CAPSULE PO SCH (21:15)
[2022-04-10] MEDS: THIAMINE HCL 100 MG TABLET (FP) PO SCH (21:15)
[2022-04-10] MEDS: QUEtiapine FUMARATE 25 MG TABLET PO SCH (21:15)
[2022-04-11] MEDS: DOCUSATE SODIUM 100 MG CAPSULE (FP) PO SCH ×3 (07:02→21:39)
[2022-04-11] MEDS: levETIRAcetam 250 MG TABLET PO SCH ×2 (07:02→18:31)
[2022-04-11] MEDS: BICTEGRAV/EMTRICIT/TENOFOV (BIKTARVY) 50-200-25 MG TABLET PO SCH (07:02)
[2022-04-11] MEDS: LORATADINE 10 MG TABLET PO SCH (09:54)
[2022-04-11] MEDS: PRENATAL VITAMINS W/ FOLIC ACID TABLET (FP) PO SCH (09:54)
[2022-04-11] MEDS: FLUOCINONIDE 0.05% TOP OINT (60 GM TUBE) TP SCH ×2 (09:54→21:40)
[2022-04-11] MEDS: NICOTINE 14 MG/24 HOURS TOPICAL PATCH TD SCH (09:55)
[2022-04-11] MEDS: PRAZOSIN HCL 1 MG CAPSULE PO SCH (21:39)
[2022-04-11] MEDS: THIAMINE HCL 100 MG TABLET (FP) PO SCH (21:39)
[2022-04-11] MEDS: QUEtiapine FUMARATE 25 MG TABLET PO SCH (21:39)
[2022-04-12] MEDS: levETIRAcetam 250 MG TABLET PO SCH ×2 (06:40→18:15)
[2022-04-12] MEDS: BICTEGRAV/EMTRICIT/TENOFOV (BIKTARVY) 50-200-25 MG TABLET PO SCH (06:40)
[2022-04-12] MEDS: DOCUSATE SODIUM 100 MG CAPSULE (FP) PO SCH ×3 (06:40→21:47)
[2022-04-12] MEDS: PRENATAL VITAMINS W/ FOLIC ACID TABLET (FP) PO SCH (09:53)
[2022-04-12] MEDS: LORATADINE 10 MG TABLET PO SCH (09:53)
[2022-04-12] MEDS: NICOTINE 14 MG/24 HOURS TOPICAL PATCH TD SCH (09:53)
[2022-04-12] MEDS: FLUOCINONIDE 0.05% TOP OINT (60 GM TUBE) TP SCH ×2 (09:54→21:48)
[2022-04-12] MEDS: THIAMINE HCL 100 MG TABLET (FP) PO SCH (21:47)
[2022-04-12] MEDS: QUEtiapine FUMARATE 25 MG TABLET PO SCH (21:47)
[2022-04-12] MEDS: PRAZOSIN HCL 1 MG CAPSULE PO SCH (21:47)
[2022-04-12] MEDS: hydrOXYzine PAMOATE 25 MG CAPSULE (FP) PO PRN (21:48)
[2022-04-12] MEDS ORDERED: SUVOREXANT 5 MG TABLET PO PRN (22:00)
[2022-04-13] MEDS: DOCUSATE SODIUM 100 MG CAPSULE (FP) PO SCH ×3 (06:58→21:24)
[2022-04-13] MEDS: levETIRAcetam 250 MG TABLET PO SCH ×2 (06:58→17:53)
[2022-04-13] MEDS: BICTEGRAV/EMTRICIT/TENOFOV (BIKTARVY) 50-200-25 MG TABLET PO SCH (06:58)
[2022-04-13] MEDS: LORATADINE 10 MG TABLET PO SCH (09:57)
[2022-04-13] MEDS: NICOTINE 14 MG/24 HOURS TOPICAL PATCH TD SCH (09:57)
[2022-04-13] MEDS: FLUOCINONIDE 0.05% TOP OINT (60 GM TUBE) TP SCH ×2 (09:58→21:26)
[2022-04-13] MEDS: PRENATAL VITAMINS W/ FOLIC ACID TABLET (FP) PO SCH (09:58)
[2022-04-13] MEDS: QUEtiapine FUMARATE 25 MG TABLET PO SCH (21:24)
[2022-04-13] MEDS: THIAMINE HCL 100 MG TABLET (FP) PO SCH (21:24)
[2022-04-13] MEDS: PRAZOSIN HCL 1 MG CAPSULE PO SCH (21:24)
[2022-04-14] MEDS: BICTEGRAV/EMTRICIT/TENOFOV (BIKTARVY) 50-200-25 MG TABLET PO SCH (07:13)
[2022-04-14] MEDS: DOCUSATE SODIUM 100 MG CAPSULE (FP) PO SCH ×3 (07:13→21:40)
[2022-04-14] MEDS: levETIRAcetam 250 MG TABLET PO SCH ×2 (07:13→17:50)
[2022-04-14] MEDS: LORATADINE 10 MG TABLET PO SCH (10:13)
[2022-04-14] MEDS: NICOTINE 14 MG/24 HOURS TOPICAL PATCH TD SCH (10:13)
[2022-04-14] MEDS: PRENATAL VITAMINS W/ FOLIC ACID TABLET (FP) PO SCH (10:13)
[2022-04-14] MEDS: FLUOCINONIDE 0.05% TOP OINT (60 GM TUBE) TP SCH ×2 (10:13→21:43)
[2022-04-14] MEDS: QUEtiapine FUMARATE 25 MG TABLET PO SCH (21:40)
[2022-04-14] MEDS: PRAZOSIN HCL 1 MG CAPSULE PO SCH (21:40)
[2022-04-14] MEDS: THIAMINE HCL 100 MG TABLET (FP) PO SCH (21:40)
[2022-04-14] MEDS: hydrOXYzine PAMOATE 25 MG CAPSULE (FP) PO PRN (21:40)
[2022-04-15] MEDS: BICTEGRAV/EMTRICIT/TENOFOV (BIKTARVY) 50-200-25 MG TABLET PO SCH (06:43)
[2022-04-15] MEDS: levETIRAcetam 250 MG TABLET PO SCH ×2 (06:43→17:12)
[2022-04-15] MEDS: DOCUSATE SODIUM 100 MG CAPSULE (FP) PO SCH ×3 (06:44→21:28)
[2022-04-15] MEDS: FLUOCINONIDE 0.05% TOP OINT (60 GM TUBE) TP SCH ×2 (09:59→21:29)
[2022-04-15] MEDS: LORATADINE 10 MG TABLET PO SCH (09:59)
[2022-04-15] MEDS: PRENATAL VITAMINS W/ FOLIC ACID TABLET (FP) PO SCH (09:59)
[2022-04-15] MEDS: NICOTINE 14 MG/24 HOURS TOPICAL PATCH TD SCH (09:59)
[2022-04-15] MEDS: PRAZOSIN HCL 1 MG CAPSULE PO SCH (21:28)
[2022-04-15] MEDS: QUEtiapine FUMARATE 25 MG TABLET PO SCH (21:29)
[2022-04-15] MEDS: THIAMINE HCL 100 MG TABLET (FP) PO SCH (21:29)
[2022-04-16] MEDS: levETIRAcetam 250 MG TABLET PO SCH (06:02)
[2022-04-16] MEDS: BICTEGRAV/EMTRICIT/TENOFOV (BIKTARVY) 50-200-25 MG TABLET PO SCH (06:03)
[2022-04-16] MEDS: DOCUSATE SODIUM 100 MG CAPSULE (FP) PO SCH (06:03)
[2022-04-16 06:30] VITALS: BP 129/69; PULSE 82; TEMP 97.8
[2022-04-16] MEDS: LORATADINE 10 MG TABLET PO SCH (09:42)
[2022-04-16] MEDS: PRENATAL VITAMINS W/ FOLIC ACID TABLET (FP) PO SCH (09:43)
[2022-04-16] MEDS: NICOTINE 14 MG/24 HOURS TOPICAL PATCH TD SCH (09:44)
[2022-04-16] MEDS: FLUOCINONIDE 0.05% TOP OINT (60 GM TUBE) TP SCH (09:45)
== END 2022-04-16 10:03 | disposition home or self-care (01) | DRG 772 ==
LOC: YASAS 14:50 → Y5N 03-19 11:53
PROVIDERS: ADMIT Allergy & Immunology; ATTEND Allergy & Immunology
PROC: HZ42ZZZ Group Counseling for Substance Abuse Treatment, Cognitive-Behavioral (ICD-10-PCS; principal; 2022-03-19)
DX: F14.20 Cocaine dependence, uncomplicated (principal); F13.20 Sedative, hypnotic or anxiolytic dependence, uncomplicated; F10.20 Alcohol dependence, uncomplicated; F12.20 Cannabis dependence, uncomplicated; F17.210 Nicotine dependence, cigarettes, uncomplicated; F19.282 Other psychoactive substance dependence with psychoactive substance-induced sleep disorder; F19.24 Other psychoactive substance dependence with psychoactive substance-induced mood disorder; F43.10 Post-traumatic stress disorder, unspecified; B20 Human immunodeficiency virus [HIV] disease; K59.00 Constipation, unspecified; L30.9 Dermatitis, unspecified; I83.91 Asymptomatic varicose veins of right lower extremity; Z62.810 Personal history of physical and sexual abuse in childhood; R63.4 Abnormal weight loss; Z68.26 Body mass index [BMI] 26.0-26.9, adult; Z86.19 Personal history of other infectious and parasitic diseases; Z86.69 Personal history of other diseases of the nervous system and sense organs
CPT/HCPCS: 36415; 80053; 80177; 81003; 85027; 86780; 86803; 87086; 87522; C9803-CS; U0003; U0005